=== PATIENT | female | born 1960 | race Caucasian/White ===

== ENCOUNTER 2020-04-19 15:12 | Day surgery (SDC) | payer BC, OTHER ==
--- NOTE | 2020-03-27 09:58 | HP ---
DATE OF ADMISSION: 04/19/2020 REASON FOR ADMISSION: Chronically incarcerated incisional hernia. BRIEF HISTORY: This is a 59-year-old female who underwent a laparoscopic cholecystectomy in April of 2019. Following that surgery she had an immediate bump in the region of the extraction site and subsequently that bump has gotten larger and larger. She was seen by her surgeon at that time and was told that this is all postsurgical and will resolve. She now has a large bump at the extraction site (much larger than a year ago) and it is causing her discomfort. She underwent a CT scan that demonstrated an incarcerated fat containing umbilical hernia; however, this is above the umbilicus and this is actually related to the incision at this level. In any event, the hernia demonstrated this to be a wide neck finding and the neck is approximately 5 cm in dimension. The surgeon had performed a gallbladder with Dr. Valladares. This was done at [facility]. Currently the patient complains of pain at the level of the hernia and she states it has gotten somewhat bigger. PAST MEDICAL HISTORY: Significant for asthma, hypercholesterolemia, and diabetes. PAST SURGICAL HISTORY: As mentioned above. ALLERGIES: PENICILLIN, SHELLFISH, and LEVEMIR INSULIN. MEDICATIONS: Humalog, metformin, and simvastatin. SOCIAL HISTORY: She does not smoke nor drink. No history of drug use. PHYSICAL EXAMINATION: Abdomen: Is obese, soft, nontender, and nondistended. She obviously has a chronically incarcerated incisional hernia in the upper abdomen it is above the umbilicus. There is a scar right. The hernia is deep to a scar (from the extraction of the cholecystectomy site). The hernia is approximately the size of a small orange. It is not reducible. The skin overlying the hernia is not tender. She also has an upper midline diastasis from xiphoid to umbilicus. There is a small umbilical hernia identified as well to deep palpation. IMPRESSION/PLAN: Chronically incarcerated incisional hernia, abdominal pain, and umbilical hernia. This is a 59-year-old female symptomatic from her chronically incarcerated incisional hernia. At this point we have discussed the various surgical approaches such as laparoscopy robotic and open and I think the patient is a better candidate for an open repair with component separation as needed. Due to the diastasis and cosmesis of the repair, the patient is considering undergoing a plastic surgery evaluation and a concomitant abdominoplasty repair of diastasis. The patient will be evaluated by Plastics and should she choose to undergo the concomitant repair, we will schedule accordingly. The indications, alternatives, and compilations of the procedure were discussed. Questions were answered. We will plan to obtain written consent on the day of surgery. Casper MARTINEZ [id number] cc: Dr. Burks
[2020-04-13 13:31] VITALS: BMI 34.2
[~2020-04-19 15:12] MED LIST: BUPIVACAINE HCL/PF 0.25% (2.5MG/ML) 10 ML VIAL IJ ONE; BUPIVACAINE HCL/PF 2.5 MG/ML - 30 ML VIAL IJ ONE; DEXAMETHASONE SOD PHOSPHATE 4 MG/1 ML VIAL IVPUSH ONE; DEXAMETHASONE SOD PHOSPHATE 4 MG/1 ML VIAL ONE; EPHEDRINE SULFATE/0.9% NACL/PF 50 MG/10 ML SYRINGE NR ONE; GLYCOPYRROLATE 0.2 MG/1 ML VIAL ONE; MIDAZOLAM HCL 2 MG/2 ML SINGLE DOSE VIAL ONE; NEOSTIGMINE METHYLSULFATE 0.5 MG/ML - 10 ML MDV ONE; ONDANSETRON 4 MG/2 ML VIAL IVPUSH PRN; ONDANSETRON 4 MG/2 ML VIAL ONE; PROPOFOL 20 ML ONE; ROCURONIUM BROMIDE 50 MG/5 ML SYRINGE ONE; SUCCINYLCHOLINE CHLORIDE 200 MG/10 ML SYRINGE ONE; ceFAZolin SODIUM 1 GM VIAL ONE; fentaNYL CITRATE 250 MCG/5 ML VIAL ONE
[2020-04-19] MEDS ORDERED: traMADol HCL 50 MG TABLET PO PRN (15:32)
[2020-04-19 18:11] LABS: INR 1.11 (0.82-1.09); PROTHROMBIN TIME (PATIENT) 12.4 SEC (10.2-13.0)
[2020-04-19] MEDS: ACETAMINOPHEN 325 MG TABLET (FP) PO PRN (18:44)
--- NOTE | 2020-04-19 20:02 | OP ---
DATE OF OPERATION: 04/19/2020 PREOPERATIVE DIAGNOSIS: Large chronically incarcerated complex incisional hernia. POSTOPERATIVE DIAGNOSIS: Large chronically incarcerated complex incisional hernia. PROCEDURE: Open repair of chronically incarcerated incisional hernia with mesh, bilateral component separation, bilateral rectus sheath block (given by cutting table operator first), partial omentectomy. SURGEON: Naeem Spivey MD. CORE CHECKER: Harry Duncan DO. ANESTHESIOLOGIST: Gio Calvillo MD. ANESTHESIA: General anesthesia. ESTIMATED BLOOD LOSS: Minimal. SPECIMEN: Portion of omental hernia sac. INDICATION: This is a 60-year-old female who underwent a laparoscopic cholecystectomy. She has a large chronically incarcerated painful ventral hernia at the extraction site. She is now here for operative repair. DESCRIPTION OF PROCEDURE: Patient identified and appropriately positioned on operating table. She was placed in general anesthesia and prepped and draped in the usual sterile fashion with ChloraPrep. A vertical midline incision was made overlying the previous scar and deep subcutaneous tissue. The hernia identified, dissected down to the level of the fascia. The patient had a very broad-mouthed defect, and the fascia had retracted to almost the middle portion of midclavicular line. The fascial edge is identified, divided sharply, and the rectus muscle on the patient's right side identified by dividing the anterior sheath, since it was already frayed to this level. The patient has a very thinned out rectus. The rectus was with blunt dissection. This was taken out laterally to the perforating vessels, just medial to the perforating vessels a myofascial separation was performed sharply the transversus from the obliques and the rectus. This myofascial separation was taken 4 to 5 inches above and below the actual defect. A similar approach was done on the patient's left side as well. The anterior sheath again retracted very lateral and almost to the midclavicular line. The anterior sheath divided. The rectus muscle again was almost nonexistent on this side as well. The muscle lifted anteriorly, and the posterior space developed bluntly out laterally to the perforating vessels. Just medial to the perforating vessel a myofascial separation was made again using sharp dissection. The dissection of this separation plane was taken 4 to 5 inches above and below the actual defect. Next, the hernia sac excised along with a portion of the omentum, since this was a slider. The omentum was cauterized as needed. The transversus was then reapproximated in the midline, closing over the fat defect with running locking 3-0 suture. The subcutaneous space irrigated, the operative field noted to be hemostatic, and a large 20 x 20 piece of Versatex along with a 10 x 16 piece of Phasix was used for the operative repair. The 2 pieces of mesh were sewn together with interrupted 3-0 Vicryl suture, the Phasix was placed on the transversus side. The mesh placed into the retrorectus location, fanned out in all directions and then anchored with interrupted AbsorbaTacks. At this point, the 1st assistant engineer now performed a bilateral rectus sheath block under direct vision with a total of 30 mL of 0.25% Marcaine, 4 mg of Decadron. The midline fascia was then reapproximated with interrupted inverted 0 PDS suture. The subcutaneous space irrigated. A 10 flat LESTER placed, brought out through a separate stab incision in the right lower quadrant. The midline closed with luis felipe followed by Dermabond. At the conclusion of this case, sponge counts were correct. ATTESTATION: Brief operative note handwritten on the preprinted form. [facility] queried prior to giving narcotics. NAEEM SPIVEY M.D. [id number]
[2020-04-20 09:27] VITALS: BP 145/75; PULSE 74; TEMP 98.6
[2020-04-20] MEDS ORDERED: ENOXAPARIN NA (PORCINE) 40 MG/0.4 ML DISP.SYRIN SQ SCH (10:00)
[2020-04-20] MEDS ORDERED: PANTOPRAZOLE 40 MG TABLET PO SCH (10:00)
[2020-04-20] MEDS: ACETAMINOPHEN 325 MG TABLET (FP) PO PRN (10:39)
--- NOTE | 2020-04-20 16:48 | DS ---
DATE OF ADMISSION: 04/19/2020 DATE OF DISCHARGE: 04/20/2020 ADMITTING DIAGNOSIS: Complex incisional hernia. DISCHARGE DIAGNOSIS: Complex incisional hernia with preexisting hyperlipidemia, diabetes. BRIEF HISTORY: This is a 60-year-old female presented to [facility] for surgical management of a complex incisional hernia. She underwent on April 19 repair of this hernia utilizing mesh and component separation. Please reference Dr. Naeem Bates's operative note from that date for further details. She was admitted to the hospital. While in the hospital, she had a retrorectus block to help with postoperative control. She is being discharged home today, April 20. She is ambulating. She is voiding. She is tolerating diet. She is not requiring narcotic medication. She has only taken Tylenol at this point. She will go home with a prescription for tramadol, which she will take as needed for pain. She has multiple drug allergies, and this is a last resort. She will sponge bathe. She will not lift more than 20 pounds. She will empty her drain daily or when full and record the amount. She will follow with Dr. Bates in 1 week's time to evaluate it for drain removal. At the time of her discharge, she is afebrile. DO PAT FREEMAN/[id number]
--- NOTE | 2020-04-21 17:25 | PATH ---
Surgical Pathology Report Patient Name: JAMESON LUIS Med. Rec. #: [id number] /Age/Gender: 1960 (Age: 60) / F Account: [id number] Location: [facility] MED-SURG Taken: 04/19/2020 Received: 04/19/2020 Reported: 04/21/2020 Physicians: Naeem Bates Specimen(s) Received PORTION OF OMENTUM AND HERNIA SAC Clinical History Hernia incarcerated Final Diagnosis PORTION OF OMENTUM AND HERNIA SAC, BILATERAL COMPONENT SEPARATION, REPAIR OF HERNIA: HERNIA SAC AND ADHERENT MATURE FIBROADIPOSE TISSUE. Electronically Signed Fidelina Moraes M.D. Gross Description Received in formalin labeled "portion of omentum and hernia sac" is a gutierrez fibromembranous tissue consistent with hernia sac and adherent fibroadipose tissue measuring 5.5 x 4 x 3.5 cm. Document Processing Specialist sections are submitted in one cassette. ANDREE/04/20/2020 moira/04/20/2020
== END 2020-04-20 11:04 | disposition home or self-care (01) ==
LOC: FASUSAT 15:12 → FM/S 15:12 → FASUSAT 04-20 11:04
PROVIDERS: ATTEND Surgery
PROC: 0JX80ZC Transfer Abdomen Subcutaneous Tissue and Fascia with Skin, Subcutaneous Tissue and Fascia, Open Approach (ICD-10-PCS; 2020-04-19)
PROC: 0WUF0JZ Supplement Abdominal Wall with Synthetic Substitute, Open Approach (ICD-10-PCS; principal; 2020-04-19 09:50)
DX: K43.0 Incisional hernia with obstruction, without gangrene (principal)
CPT/HCPCS: 36415; 82962; 85610; 88302-TC; 94760

== ENCOUNTER 2020-05-11 16:19 | Emergency (ER) | payer OTHER ==
[2020-05-11 16:52] VITALS: BP 132/84; PULSE 89; TEMP 98.5; BMI 33.9
[2020-05-11] MEDS ORDERED: KETOROLAC TROMETHAMINE 30 MG/1 ML VIAL IM ONE (17:43)
[2020-05-11] MEDS ORDERED: KETOROLAC TROMETHAMINE 30 MG/1 ML VIAL ONE (17:43)
--- NOTE | 2020-05-11 18:00 | PDOC ---
History of Present Illness - General Chief Complaint: Pain Stated Complaint: LEFT PATELL/PAIN/ABD/PAIN Time Seen by Provider: 05/11/20 17:00 History Source: Patient Exam Limitations: No Limitations - History of Present Illness Initial Comments: 05/11/20 17:54 60-year-old female history of diabetes, hyperlipidemia, status post umbilical hernia repair with mesh 04/19/20, left knee pain began approximately 04/15/20, patient was evaluated by Dr. Fisher 04/24/20, had left knee x-ray and was referred for physical therapy. Patient began physical therapy 3 days ago twice a week for 6 weeks. She went to physical therapy this morning and felt a pop painful sensation during the exercises which caused her to fall onto her chair in a sitting position. Therapist applied ice to the area. Patient reports taking Naprosyn at approximately 11:30 AM today without much relief. Went home and felt worsening pain. She emailed Dr. Fisher today who referred her for an MRI, patient called MRI center and was told appointments were available in May. She put on her knee immobilizer and presents to the ED accompanied by her partner. As per triage note patient reported abdominal pain. States that she has been using her abdominal muscles more often and favoring her right knee given her left knee causes her pain. Feels abdominal soreness. However denies fever, nausea, vomiting, abdominal distention. ROS: as above PE: GENERAL: NAD, sitting comfortably in a wheelchair HEAD: NCAT EYES: Pupils equal, round and reactive to light, sclera anicteric, conjunctiva clear ENT: pharynx: no erythema, no exudate, uvula midline NECK: supple CHEST: nontender RESP: clear, no w/r/r CARDIO: rrr, no m/g/r ABD: +BS, soft, healing surgical scars, nontender, minimal distention BACK: no midline spinal ttp, no CVAT EXTREMITIES: Decreased range of motion to left knee, positive crepitus to left knee, no laxity, no bony tenderness to palpation NEUROLOGICAL: Normal speech, unable to bear weight on left knee due to pain SKIN: Warm, Dry Is this a multiple visit Asthma Patient?: No Past History - Medical History Allergies/Adverse Reactions: Allergies Allergy/AdvReac Type Severity Reaction Status Date / Time codeine Allergy Severe Vomiting Verified 05/11/20 16:35 diazepam [From Valium] Allergy Severe Vomiting Verified 05/11/20 16:35 insulin detemir Allergy Severe Rash Verified 05/11/20 16:35 [From Levemir U-100 Insulin] Iodinated Contrast Media Allergy Severe Swelling Verified 05/11/20 16:35 oxycodone Allergy Severe Vomiting Verified 05/11/20 16:35 Penicillins Allergy Severe Rash Verified 05/11/20 16:35 shellfish derived Allergy Severe Swelling Verified 05/11/20 16:35 Home Medications: Ambulatory Orders Insulin Glargine,Hum.rec.anlog [Toujeo Solostar] 25 unit SQ HS 04/13/20 Insulin Lispro [Humalog Kwikpen U-100] 5 - 12 unit SQ AC PRN 04/13/20 Levocetirizine Dihydrochloride [Xyzal] 5 mg PO ASDIR PRN 04/13/20 Simvastatin 40 mg PO HS 04/13/20 metFORMIN XR [Glucophage Xr -] 750 mg PO BID 04/13/20 Tramadol HCl [Ultram] 50 mg PO Q6H PRN #42 tablet MDD 6 04/19/20 traMADol HCL [Ultram -] 50 mg PO Q6H PRN tablet 04/20/20 Anemia: No Asthma: Yes (LAST USED INHALER 1 YEAR AGO) Cancer: No Cardiac Disorders: No CVA: No COPD: No CHF: No Dementia: No Diabetes: Yes (IDDM X 5 YEARS) GI Disorders: Yes (GERD,IMPROVED) Disorders: No HTN: No Hypercholesterolemia: Yes Liver Disease: Yes (FATTY LIVER) Seizures: No Thyroid Disease: No - Surgical History Abdominal Surgery: Yes Appendectomy: No Cardiac Surgery: No Cholecystectomy: Yes Lung Surgery: No Neurologic Surgery: No Orthopedic Surgery: Yes - Reproductive History Is Patient Now?: No - Psycho-Social/Smoking History Smoking History: Never smoked Have you smoked in the past 12 months: No - Substance Abuse Hx (Audit-C & DAST Scrn) How often the patient has a drink containing alcohol: Never Score: In Men: 4 or > Positive; In Women: 3 or > Positive: 0 Screen Result (Pos requires Nsg. Audit-10AR): Negative In the last yr the pt used illegal drug/Rx for NonMed reason: No Score: Yes response is considered Positive: 0 Screen Result (Positive result requires Nsg. DAST-10): Negative *Physical Exam - Vital Signs Last Vital Signs Temp Pulse Resp BP Pulse Ox 98.5 F 89 17 132/84 100 05/11/20 16:34 05/11/20 16:34 05/11/20 16:34 05/11/20 16:34 05/11/20 16:34 ED Treatment Course - RADIOLOGY Radiology Studies Ordered: Category Date Time Status KNEE 3 POS-LEFT [RAD] Stat Radiology 05/11/20 17:43 Ordered - Medications Given in the ED: ED Medications Discontinued Medications Generic Name Dose Route Start Last Admin Trade Name Otoniel PRN Reason Stop Dose Admin Ketorolac Tromethamine 30 mg 05/11/20 17:43 05/11/20 17:51 Toradol Injection - IM 05/11/20 17:44 30 mg ONCE ONE Administration Medical Decision Making - Medical Decision Making 05/11/20 18:10 60-year-old female history of diabetes, hyperlipidemia, status post umbilical hernia repair with mesh 04/19/20, left knee pain began approximately 04/15/20, patient was evaluated by Dr. Fisher 04/24/20, had left knee x-ray and was referred for physical therapy. Patient began physical therapy 3 days ago twice a week for 6 weeks. She went to physical therapy this morning and felt a pop painful sensation during the exercises which caused her to fall onto her chair in a sitting position. Therapist applied ice to the area. Patient reports taking Naprosyn at approximately 11:30 AM today without much relief. Went home and felt worsening pain. She emailed Dr. Fisher today who referred her for an MRI, patient called MRI center and was told appointments were available in May. She put on her knee immobilizer and presents to the ED accompanied by her par tner. As per triage note patient reported abdominal pain. States that she has been using her abdominal muscles more often and favoring her right knee given her left knee causes her pain. Feels abdominal soreness. However denies fever, nausea, vomiting, abdominal distention. Patient understands that an MRI of her left knee is not indicated in the ED at this time Left knee x-ray ordered Toradol 30 mg IM x1 dose ordered 05/11/20 19:19 Patient left the ED after evaluation, x-ray and receiving Toradol IM 05/11/20 19:20 Discharge - Discharge Information Problems reviewed: Yes Clinical Impression/Diagnosis: Left knee pain Qualifiers: Chronicity: acute Qualified Code(s): M25.562 - Pain in left knee Disposition: ELOPED - Follow up/Referral Referrals: Harry Burks [Primary Care Provider] - - Patient Discharge Instructions - Post Discharge Activity
== END 2020-05-11 19:00 | disposition left against medical advice (07) ==
LOC: JER 16:19
PROC: 3E0233Z Introduction of Anti-inflammatory into Muscle, Percutaneous Approach (ICD-10-PCS; principal; 2020-05-11)
DX: M25.562 Pain in left knee (principal)
CPT/HCPCS: 73562-TC-LT-FY; 99284-25